=== PATIENT | male | born 1990 | race Caucasian/White ===

== ENCOUNTER 2016-08-23 10:49 | Emergency (ER) | payer SELFPAY ==
[~2016-08-23] VITALS: Ht 167.6 cm; Wt 66.5 kg
[2016-08-23 10:56] VITALS: Ht 167.6 cm; Wt 66.5 kg
[2016-08-23] MEDS ORDERED: KETOROLAC 30 MG INJ IV STA (11:42)
[2016-08-23] MEDS ORDERED: FAMOTIDINE 20 MG INJ IV STA (11:42)
[2016-08-23] MEDS ORDERED: ONDANSETRON 4 MG INJ IV STA (11:42)
[2016-08-23] MEDS ORDERED: SOD CHLORIDE 0.9% 1,000 ML IV STA (11:42)
[2016-08-23 12:11] LABS: BASOPHILS % 0.3 % (0.0-2.0); EOSINOPHILS % 0.1 % (0.0-7.0); HEMATOCRIT 43.5 % (42.0-52.0); LYMPHOCYTES # 0.6 10^3/ul (0.8-2.9); LYMPHOCYTES % 18.1 % (15.0-51.0); MEAN CORPUSCULAR HEMOGLOBIN 30.3 pg (29.0-33.0); MEAN CORPUSCULAR HGB CONC 34.4 g/dl (32.0-37.0); MEAN CORPUSCULAR VOLUME 88.2 fl (82.0-101.0); MEAN PLATELET VOLUME 7.3 fl (7.4-10.4); MONOCYTE # 0.3 10^3/ul (0.3-0.9); MONOCYTES % 10.7 % (0.0-11.0); NEUTROPHIL # 2.3 10^3/ul (1.6-7.5); NEUTROPHILS % 70.8 % (39.0-77.0); PLATELET COUNT 176 10^3/UL (140-440); RED BLOOD COUNT 4.93 10^6/ul (4.70-6.10); UNCORRECTED WBC 3.2 10^3/ul (4.8-10.8); WHITE BLOOD COUNT 3.2 10^3/ul (4.8-10.8)
[2016-08-23 12:18] LABS: CONDITION 1
[2016-08-23 12:18] LABS: ADD UMIC YES; URINE BILIRUBIN (Dip) NEGATIVE (NEGATIVE); URINE BLOOD (Dip) TRACE (NEGATIVE); URINE COLOR LT. YELLOW (YELLOW); URINE GLUCOSE (Dip) NEGATIVE (NEGATIVE); URINE KETONES (Dip) NEGATIVE (NEGATIVE); URINE LEUKOCYTE ESTERASE (Dip) NEGATIVE (NEGATIVE); URINE NITRITE (Dip) NEGATIVE (NEGATIVE); URINE TOTAL PROTEIN (Dip) NEGATIVE (NEGATIVE); URINE UROBILINOGEN (Dip) 0.2 E.U./dL (0.1-1.0)
[2016-08-23 12:19] LABS: ALBUMIN 4.5 g/dl (3.3-4.9)
[2016-08-23 12:20] LABS: POTASSIUM 4.1 mmol/L (3.5-5.1)
[2016-08-23 12:22] LABS: ALBUMIN/GLOBULIN RATIO 1.36; BILIRUBIN,INDIRECT 0.2 mg/dl (0-1.1); BILIRUBIN,TOTAL 0.2 mg/dl (0.2-1.3); CREATININE 0.74 mg/dl (0.61-1.24); TOTAL PROTEIN 7.8 g/dl (6.1-8.1)
[2016-08-23 12:23] LABS: CALCIUM 9.4 mg/dl (8.4-10.2)
[2016-08-23 12:43] LABS: URINE RBCS 0-2 /HPF (0)
[2016-08-23] MEDS ORDERED: ONDA4TAB8 PO (13:20)
[2016-08-23] MEDS ORDERED: FAMO-18 PO (13:20)
[2016-08-23 13:55] VITALS: BP 118/65; PULSE 72; RESP 19; TEMP 98.4
--- NOTE | 2016-08-23 22:49 | ERD ---
ER Documentation Chief Complaint Date/Time DATE: 08/23/16 Chief Complaint Vomiting x 3 days HPI The patient is a 26-year-old male who presents to the Emergency Department with complaint of nausea and vomiting for the past three days. He reports that his symptoms are provoked by eating heavy foods, at which time he developed nausea and vomits. He denies any bilious or bloody emesis. Denies diarrhea. Denies black or bloody stools. His last bowel movement was earlier today, and normal. The patient reports that after vomiting, he developed diffuse burning abdominal pain, which he currently rates as 5/10. However, denies any localizing pain. He continues to pass flatus with no obstipation. Denies recent URI-type symptoms. Denies recent travel. Denies recent antibiotic use. Denies any sick contacts with similar symptoms. ROS All systems reviewed and are negative except as per history of present illness. Medications Home Meds Active Scripts Famotidine* (Pepcid*) 20 Mg Tablet, 20 MG PO BID for 5 Days, TAB Prov:ROSA ISELA RAMSEY PA-C 08/23/16 Ondansetron Hcl* (Zofran*) 4 Mg Tablet, 4 MG PO Q8H Y for NAUSEA AND/OR VOMITING , #10 TAB Prov:ROSA ISELA RAMSEY PA-C 08/23/16 Allergies Allergies: Coded Allergies: No Known Allergy (Unverified , 08/23/16) PMhx/Soc Medical and Surgical Hx: pt denies Surgical Hx History of Surgery: No Hx Neurological Disorder: No Hx Respiratory Disorders: No Hx Cardiac Disorders: No Hx Psychiatric Problems: No Hx Miscellaneous Medical Probl: Yes (HAD A BROKEN ARM) Hx Alcohol Use: Yes (SOCIALLY) Hx Substance Use: No Hx Tobacco Use: No Smoking Status: Never smoker Physical Exam Vitals Vital Signs Date Time Temp Pulse Resp B/P Pulse Ox O2 Delivery O2 Flow Rate FiO2 08/23/16 13:55 98.4 72 19 118/65 100 Room Air 08/23/16 10:56 98.5 78 16 118/74 98 Physical Exam GENERAL: Well-developed, well-nourished, in no acute distress. Nontoxic. Well- appearing. HEENT: Head is normocephalic, atraumatic. No scleral pallor or icterus. Pupils equal, round and reactive to light. Conjunctiva pink. Moist mucous membranes. NECK: Supple. RESPIRATORY: Lungs are clear to auscultation bilaterally. Equal breath sounds. Normal expiratory effort. CARDIOVASCULAR: Regular rate and rhythm. S1 and S2 normal. GASTROINTESTINAL: Abdomen is soft, non-tender, and non-distended. No guarding, no rebound tenderness. Normal bowel sounds. No abdominal bruits. No gross peritonitis. No masses or organomegaly. No tenderness at McBurney's point. Negative Callaway's sign. FLANK: No CVA tenderness. EXTREMITIES: No clubbing, cyanosis, or edema. Normal skin perfusion. Moving all extremities. Muscle tone is normal. No focal swelling or erythema. Distal pulses are palpable, 2+ bilaterally. Capillary refill is less than 2 seconds. NEUROLOGIC: The patient is alert, awake, and oriented x 3. No focal neurologic deficits. Gait is observed and normal. There is no ataxia. Speech is normal. INTEGUMENT: Skin is clean, dry and intact. No rashes, lesions or petechiae present. Normal turgor. PSYCHIATRIC: Appropriate; Cooperative. Result Diagram: 08/23/16 1148 08/23/16 1148 Results 24 hrs Laboratory Tests Test 08/23/16 11:44 08/23/16 11:48 Urine Bilirubin NEGATIVE Urine Clarity CLEAR Urine Color LT. YELLOW Urine Glucose NEGATIVE% Urine Hemoglobin TRACE Urine Ketones NEGATIVE Urine Leukocyte Esterase NEGATIVE Urine Microscopic RBC 0-2/HPF Urine Microscopic WBC NONE SEEN/HPF Urine Nitrite NEGATIVE Urine Specific [place] 1.010 Urine Total Protein NEGATIVE Urine Urobilinogen 0.2 E.U./dL Urine pH 6.0 Alanine Aminotransferase (ALT/SGPT) 20IU/L Albumin 4.5g/dl Albumin/Globulin Ratio 1.36 Alkaline Phosphatase 47IU/L Anion Gap 17 Aspartate Amino Transf (AST/SGOT) 22IU/L Basophils # 0.010^3/ul Basophils % 0.3% Blood Morphology Comment Blood Urea Nitrogen 12mg/dl Calcium Level 9.4mg/dl Carbon Dioxide Level 29mmol/L Chloride Level 101mmol/L Creatinine 0.74mg/dl Direct Bilirubin 0.00mg/dl Eosinophils # 0.010^3/ul Eosinophils % 0.1% Globulin 3.30g/dl Glucose Level 112mg/dl Hematocrit 43.5% Hemoglobin 15.0g/dl Indirect Bilirubin 0.2mg/dl Lipase 56U/L Lymphocytes # 0.610^3/ul Lymphocytes % 18.1% Mean Corpuscular Hemoglobin 30.3pg Mean Corpuscular Hemoglobin Concent 34.4g/dl Mean Corpuscular Volume 88.2fl Mean Platelet Volume 7.3fl Monocytes # 0.310^3/ul Monocytes % 10.7% Neutrophils # 2.310^3/ul Neutrophils % 70.8% Nucleated Red Blood Cells # 0.010^3/ul Nucleated Red Blood Cells % 0.0/100WBC Platelet Count 23597^3/UL Potassium Level 4.1mmol/L Red Blood Count 4.9310^6/ul Red Cell Distribution Width 13.0% Sodium Level 143mmol/L Total Bilirubin 0.2mg/dl Total Protein 7.8g/dl White Blood Count 3.210^3/ul Current Medications Medications (Trade) Dose Ordered Sig/Fly Route PRN Reason Start Time Stop Time Status Last Admin Dose Admin Sodium Chloride (NS) 1,000 ml @ 1,000 mls/hr Q1H STAT IV 08/23/16 11:42 08/23/16 12:41 DC 08/23/16 11:58 Ondansetron HCl (Zofran Inj) 4 mg ONCE STAT IV 08/23/16 11:42 08/23/16 11:44 DC 08/23/16 11:58 Famotidine (Pepcid Iv) 20 mg ONCE STAT IV 08/23/16 11:42 08/23/16 11:44 DC 08/23/16 11:58 Ketorolac Tromethamine (Toradol) 30 mg ONCE STAT IV 08/23/16 11:42 08/23/16 11:44 DC 08/23/16 11:58 Procedures/MDM This is a 26-year-old male presenting to the Emergency Department with complaint of nausea and vomiting for 3 days. On physical examination the patient had no significant abnormalities noted. Vital signs were normal. Differential diagnosis includes, but is not limited to, gastroenteritis, gastritis, cholecystitis, cholangitis, choledocholithiasis, pancreatitis, perforated viscus, mesenteric ischemia, GERD, PUD, urinary tract infection, pyelonephritis, hepatitis, infectious diarrhea, IBD, aortic dissection, torsion , bowel obstruction, appendicitis, diverticulitis. No significant acute abnormalities were noted on laboratory or imaging modalities ordered. After rest and administration of fluids and medications, the patient reports no new complaints and resolved pain and symptoms. Upon review and interpretation of the patient's presentation and overall ER course, I believe the patient's symptoms are most consistent with nausea and vomiting, resolved. His abdominal examination was benign, with no current evidence of acute/surgical abdomen. I doubt cholecystitis, clinical presentation inconsistent, negative Callaway's sign. Doubt pancreatitis - lipase normal, clinical presentation inconsistent. Doubt perforated ulcer, patient has a non-surgical abdomen. Doubt small bowel obstruction, patient is passing flatus, abdomen is non-distended. Doubt appendicitis, patient has no McBurney' s point tenderness, no guarding, non-surgical abdomen, no tenderness over the RLQ. Doubt diverticulitis, exam inconsistent. Doubt ischemic bowel, no pain out of proportion to examination. Doubt torsion, symptoms and examination inconsistent. At this time, the patient is in stable condition and therefore can be discharged home with prescriptions for Zofran and Pepcid and strict return precautions for signs of deteriorating or worsening condition. He is advised to follow up with his primary care provider in 2-3 days for reevaluation and further management, or return to the ER sooner if symptoms worsen. I shared my medical decision making, plan, as well as the results with the patient and he verbally understands and agrees with the plan for further observation and care as an outpatient. At the time of discharge, all questions were answered. Departure Diagnosis: Primary Impression: Nausea and vomiting Vomiting type: unspecified Vomiting Intractability: non-intractable Qualified Code: R11.2 - Non-intractable vomiting with nausea, unspecified vomiting type Condition: Stable Patient Instructions: Nausea and Vomiting-Adult Additional Instructions: Call your primary care doctor TOMORROW for an appointment during the next 2-3 days.See the doctor sooner or return here if your condition worsens before your appointment time. ROSA ISELA RAMSEY PA-C Aug 23, 2016 22:49
== END 2016-08-23 13:56 | disposition home or self-care (01) ==
LOC: FTE 10:49
DX: R11.2 Nausea with vomiting, unspecified (principal)
CPT/HCPCS: 80053; 81001; 83690; 85025; J1885; J2405; J7030; 36415; 81003; 96374; 96375